=== PATIENT | female | born 1950 | race Caucasian/White ===

== ENCOUNTER 2019-08-13 11:43 | Emergency (ER) | payer MEDICARE, MEDICAID ==
[~2019-08-13] VITALS: Ht 160 cm; Wt 125.0 kg
[~2019-08-13 11:43] MED LIST: ACET325T99 PO; ALBU8.5H8 IH; ASPI-611 PO; ATOR20TA66 PO; BIOT1CAP3 PO; CARV3.123 PO; CYAN-51 PO; FLUT1AER IH; FURO40TA4 PO; GABA-532 PO; GLIM1TAB3 PO; INSU100V36 SQ; LANTUS SQ; LOSA25TA41 PO; MULT-1141 PO; SITA100T11 PO; TRAM50TA2 PO
[2019-08-13] MEDS ORDERED: ondansetron 4mg rapidly disintigrating tab PO ONE (11:55)
[2019-08-13] MEDS ORDERED: HYDROcodone/acetaminophen 5mg/325mg tablet PO ONE (11:55)
[2019-08-13] MEDS ORDERED: ONDA4TAB6 PO (12:41)
--- NOTE | 2019-08-13 12:43 | NUR ---
CALL TO [facility] FOR TRANSPORT. PATIENT MADE AWARE.
[2019-08-13] MEDS ORDERED: CEPH250T PO (13:04)
[2019-08-13 13:48] VITALS: BP 149/62
== END 2019-08-13 13:50 | disposition home or self-care (01) ==
LOC: ER 11:43
DX: L03.115 Cellulitis of right lower limb (principal); E11.65 Type 2 diabetes mellitus with hyperglycemia; I50.9 Heart failure, unspecified; E66.01 Morbid (severe) obesity due to excess calories; Z56.0 Unemployment, unspecified; Z98.890 Other specified postprocedural states; Z88.8 Allergy status to other drugs, medicaments and biological substances; Z79.82 Long term (current) use of aspirin; Z79.4 Long term (current) use of insulin; Z79.899 Other long term (current) drug therapy; Z79.2 Long term (current) use of antibiotics
CPT/HCPCS: 73630; 99284

== ENCOUNTER 2020-03-09 12:38 | Outpatient (CLI) | payer MEDICARE, MEDICAID ==
[~2020-03-09 12:38] MED LIST changes: +AMA1T PO; -GLIM1TAB3 PO; +ONDA4TAB6 PO
[2020-03-09 13:36] LABS: ABG BASE EXCESS 4.5 mmol/L (-2.0-3.0); ABG HCO3 28.2 mmol/L (22.0-26.0); ABG OXYGEN SATURATION 94.8 % (95-98); ABG PCO2 (T) 38.5 mmHg (35.0-45.0); ABG PH (T) 7.482 (7.350-7.450); ABG PO2 (T) 73.8 mmHg (83-108); ALLEN'S TEST POSITIVE; FCOHb 0.6 % (0.5-1.5); FLOW 5 L/min; FMetHb 0.3 % (0.3-1.12); FO2Hb 93.9 % (94-100); TOTAL HEMOGLOBIN 12.8 G/dl (12.0-16.0)
== END 2020-03-09 23:59 | disposition home or self-care (01) ==
LOC: RT 12:38
PROVIDERS: ATTEND Internal Medicine Pulmonary Disease
DX: J84.112 Idiopathic pulmonary fibrosis (principal); J96.11 Chronic respiratory failure with hypoxia
CPT/HCPCS: 36600; 82803; 85018

== ENCOUNTER 2020-04-08 08:12 | Inpatient (IN) | payer MEDICARE, MEDICAID ==
[~2020-04-08] VITALS: Ht 160 cm; Wt 128.9 kg
[2020-04-08] MEDS ORDERED: furosemide 10 MG/1 ML 10ml inj IV ONE (08:50)
[2020-04-08 09:07] LABS: BASOPHILS % (AUTO) 0.3 % (0-1); EOSINOPHILS # (AUTO) 0.1 X10'3 (0-0.9); EOSINOPHILS % (AUTO) 0.6 % (0-6); HEMATOCRIT 44.5 % (35.0-45.0); HEMOGLOBIN 14.1 g/dl (12.0-16.0); LYMPHOCYTES # (AUTO) 0.6 X10'3 (1.1-4.8); LYMPHOCYTES % (AUTO) 3.8 % (21-51); MEAN CORPUSCULAR HGB CONC 31.6 g/dL (33.0-36.5); MEAN CORPUSCULAR VOLUME 94.8 FL (78-98); MEAN PLATELET VOLUME 8.7 FL (7.4-10.4); MONOCYTES # (AUTO) 0.7 X10'3 (0-0.9); MONOCYTES % (AUTO) 4.7 % (2-12); NEUTROPHILS # (AUTO) 13.4 X10'3 (1.8-7.7); NEUTROPHILS % (AUTO) 90.6 % (42-75); PLATELET COUNT 220 X10'3 (140-440); RED CELL DISTRIBUTION WIDTH 16.9 % (11.5-14.5); WHITE BLOOD COUNT 14.8 X10'3 (4.5-11.0)
[2020-04-08 09:17] LABS: PARTIAL THROMBOPLASTIN TIME 23 SECONDS (22-32)
[2020-04-08 09:20] LABS: ALANINE AMINOTRANSFERASE 24 U/L (12-78); ALBUMIN 3.7 G/DL (3.4-5.0); ALBUMIN/GLOBULIN RATIO 0.8 (1.1-1.5); ALKALINE PHOSPHATASE 80 IU/L (46-116); ANION GAP 8 (8-16); ASPARTATE AMINO TRANSFERASE 20 U/L (10-37); BILIRUBIN,TOTAL 0.9 MG/DL (0.1-1.0); BLOOD UREA NITROGEN 33 MG/DL (7-18); BUN/CREATININE RATIO 26.2 (6.6-38.0); CALCIUM 9.1 MG/DL (8.5-10.1); CHLORIDE 101 MMOL/L (99-107); CREATININE 1.26 MG/DL (0.40-0.90); GLUCOSE 288 MG/DL (70-104); POTASSIUM 4.2 MMOL/L (3.5-5.1); SODIUM 139 MMOL/L (135-145); TOTAL CARBON DIOXIDE 30.2 MMOL/L (24-32); TOTAL PROTEIN 8.6 G/DL (6.4-8.2); eGFR 42 ML/MIN
[2020-04-08 09:20] LABS: ABG BASE EXCESS -1.4 mmol/L (-2.0-3.0); ABG HCO3 22.9 mmol/L (22.0-26.0); ABG PCO2 (T) 37.3 mmHg (35.0-45.0); ABG PH (T) 7.406 (7.350-7.450); ABG PO2 (T) 96.7 mmHg (83-108); ALLEN'S TEST POSITIVE; FCOHb 1.3 % (0.5-1.5); FLOW 15 L/min; FMetHb 0.1 % (0.3-1.12); FO2Hb 95.6 % (94-100); TOTAL HEMOGLOBIN 14.6 G/dl (12.0-16.0)
[2020-04-08] MEDS ORDERED: normal saline 1000ml 1,000 ML IV ONE (09:35)
--- NOTE | 2020-04-08 09:41 | NUR ---
PATIENT TAKEN OFF NO REBREATHER AND PLACED ON N/C 5L
[2020-04-08] MEDS ORDERED: LIDOcaine 2% 10ml TOPICAL JELLY (Urojet) TP ONE (11:15)
--- NOTE | 2020-04-08 12:13 | NUR ---
Pt gave permission to give Marie Amaro any information that she would like. Marie is the pt's niece and caregiver. Marie is listed at pt's next of kin.
--- NOTE | 2020-04-08 12:16 | NUR ---
Lab called with a negative COVID result for pt.
[2020-04-08] MEDS ORDERED: iohexol 350MG/ML 100ml bottle IV ONE (12:17)
[2020-04-08] MEDS ORDERED: LORazepam 2 mg/ml vial IV ONE (12:20)
[2020-04-08] MEDS ORDERED: bisacodyl 10mg suppository rectal RC PRN (14:00)
[2020-04-08] MEDS ORDERED: ondansetron/PF 4mg/2ml inj IV PRN (14:00)
[2020-04-08] MEDS ORDERED: magnesium 4gm in 100ml NS 100 ML IV PRN (14:00)
[2020-04-08] MEDS ORDERED: magnesium 2GM in 50ml NS 50 ML IV PRN (14:00)
[2020-04-08] MEDS ORDERED: magnesium Cl slow-release 64mg tablet PO PRN (14:00)
[2020-04-08] MEDS ORDERED: HYDROcodone/acetaminophen 5mg/325mg tablet PO PRN (14:00)
[2020-04-08] MEDS ORDERED: HYDROcodone/acetaminophen 10/325mg tab PO PRN (14:00)
[2020-04-08] MEDS ORDERED: morphine 2 MG/ML inj. syringe IV PRN ×2 (14:00)
[2020-04-08] MEDS ORDERED: potassium Cl 20 mEq SR tablet PO PRN ×2 (14:00)
[2020-04-08] MEDS ORDERED: acetaminophen 325mg tablet PO PRN (14:00)
[2020-04-08] MEDS ORDERED: potassium CL 10mEq/100ml bag 100 ML IV PRN ×2 (14:00)
[2020-04-08] MEDS ORDERED: mag hydrox/Alum hydrox/simeth 30ml oral suspension PO PRN (14:00)
[2020-04-08] MEDS ORDERED: magnesium hydroxide 30ml (MOM) UD suspension PO PRN (14:00)
[2020-04-08] MEDS: CefTRIAXone/D5W-Rocephin 1gm 50 ML IV SCH (15:00)
[2020-04-08] MEDS ORDERED: BUDE10.2 IH (15:16)
[2020-04-08] MEDS ORDERED: GABA300C PO (15:16)
[2020-04-08] MEDS ORDERED: FURO-149 PO (15:16)
[2020-04-08] MEDS ORDERED: TRAM50TA2 PO (15:16)
[2020-04-08] MEDS ORDERED: NYSPWD TP (15:16)
[2020-04-08] MEDS ORDERED: LOSA25TA41 PO (15:16)
[2020-04-08] MEDS ORDERED: SITA50TA7 PO (15:16)
[2020-04-08] MEDS ORDERED: TRAZ-251 PO (15:16)
[2020-04-08] MEDS ORDERED: CARV3.122 PO (15:16)
[2020-04-08] MEDS ORDERED: ALBU18HF2 IH (15:16)
[2020-04-08] MEDS ORDERED: ANAS1TAB10 PO (15:16)
[2020-04-08] MEDS ORDERED: POTA10CA44 PO (15:16)
[2020-04-08] MEDS ORDERED: GLIP5TAB13 PO (15:16)
[2020-04-08] MEDS ORDERED: ATOR20TA PO (15:16)
[2020-04-08] MEDS ORDERED: INSU100V9 SQ ×2 (15:16)
[2020-04-08] MEDS ORDERED: dextrose ORAL solution 15 GM/59 ML bottle PO PRN ×2 (15:35)
[2020-04-08] MEDS ORDERED: furosemide 40mg/4ml inj IV ONE (15:35)
[2020-04-08] MEDS ORDERED: dextrose 50%-water 50ml dispensing syringe IV PRN ×2 (15:35)
[2020-04-08] MEDS ORDERED: MESSAGE TO PHARMACY PO ONE (15:35)
[2020-04-08] MEDS ORDERED: glucagon, human recombinant 1mg kit SUBCUT PRN (15:35)
[2020-04-08 15:40] LABS: HEMOGLOBIN A1C 8.8 % (4.5-6.2)
[2020-04-08] MEDS ORDERED: methylPREDNISolone sod succ 125mg/2ml vial IV ONE (15:50)
[2020-04-08] MEDS ORDERED: ipratropium/albuterol 3ml nebule NEB PRN (15:50)
[2020-04-08] MEDS ORDERED: traMADol 50MG tablet PO PRN (15:55)
[2020-04-08] MEDS ORDERED: traZODone 50mg tablet PO PRN (15:55)
--- NOTE | 2020-04-08 16:06 | NUR ---
Ella RT for evaluation of pt as she is only satting 86% with a good pleth on 6L.
--- NOTE | 2020-04-08 16:11 | NUR ---
Placed pt on non-rebreather at 15L, now 95%. RT at bedside.
--- NOTE | 2020-04-08 16:20 | NUR ---
Pt placed on BIPAP by RT.
--- NOTE | 2020-04-08 16:41 | NUR ---
Pt's son is Gregor Joyce, his number is [phone]. He is able to have any info per pt.
[2020-04-08] MEDS: potassium chloride 10mEq ER tablet PO SCH (17:30)
[2020-04-08 17:45] LABS: ABG BASE EXCESS 3.5 mmol/L (-2.0-3.0); ABG HCO3 27.5 mmol/L (22.0-26.0); ABG OXYGEN SATURATION 99.1 % (95-98); ABG PCO2 (T) 39.5 mmHg (35.0-45.0); ABG PO2 (T) 193.5 mmHg (83-108); ALLEN'S TEST POSITIVE; FMetHb 0.1 % (0.3-1.12); RESPIRATORY RATE 14 b/min; TIDAL VOLUME 29 mL; TOTAL HEMOGLOBIN 14.1 G/dl (12.0-16.0)
[2020-04-08 19:05] VITALS: BP 124/68
--- NOTE | 2020-04-08 19:05 | NUR ---
pt arrived to PCU unit from the ER, pt transferred to the hospital bed via slide board, pt is not in any respiratory distress at this time, pt is on bipap at 70%, all needs addressed, will continue to monitor pt
[2020-04-08] MEDS: K and/or MAG REPLACEMENT MC SCH (20:00)
[2020-04-08] MEDS: furosemide 40mg/4ml inj IV SCH (20:24)
[2020-04-08] MEDS: ipratropium/albuterol 3ml nebule NEB SCH ×2 (20:30→23:42)
[2020-04-08] MEDS: methylPREDNISolone sod succ 125mg/2ml vial IV SCH (20:30)
[2020-04-08] MEDS: gabapentin 300mg capsule PO SCH (20:31)
[2020-04-08] MEDS: heparin, porcine 5000 units/ml vial SQ SCH (20:31)
[2020-04-08] MEDS: carVEDilol 3.125mg tablet PO SCH (20:31)
[2020-04-08] MEDS: budesonide 0.5mg/2ml UD nebule IH SCH (20:35)
[2020-04-08] MEDS ORDERED: temazepam 15mg capsule PO PRN (21:00)
--- NOTE | 2020-04-08 22:00 | NUR ---
notified provider of 12 trop being 0.05, no new orders, will continue to monitor pt
[2020-04-08] MEDS: insulin Lispro (HumaLOG) vial - multi-dose SQ SCH (22:11)
[2020-04-08] MEDS: insulin glargine (Lantus) pen - multi-dose SQ SCH (22:14)
[2020-04-08 23:00] VITALS: BP 112/63
[2020-04-09] MEDS: methylPREDNISolone sod succ 125mg/2ml vial IV SCH ×4 (02:28→19:39)
[2020-04-09 03:00] VITALS: BP 102/60
[2020-04-09 06:14] LABS: HEMATOCRIT 39.4 % (35.0-45.0); HEMOGLOBIN 12.7 g/dl (12.0-16.0); MEAN CORPUSCULAR HEMOGLOBIN 30.1 PG (27.0-31.0); MEAN CORPUSCULAR HGB CONC 32.1 g/dL (33.0-36.5); MEAN CORPUSCULAR VOLUME 93.7 FL (78-98); MEAN PLATELET VOLUME 8.8 FL (7.4-10.4); PLATELET COUNT 195 X10'3 (140-440); RED BLOOD COUNT 4.21 X10'6 (4.20-5.60); RED CELL DISTRIBUTION WIDTH 17.3 % (11.5-14.5)
[2020-04-09 06:32] LABS: ALBUMIN 2.7 G/DL (3.4-5.0); ANION GAP 7 (8-16); BLOOD UREA NITROGEN 29 MG/DL (7-18); BUN/CREATININE RATIO 21.3 (6.6-38.0); CALCIUM 8.3 MG/DL (8.5-10.1); CHLORIDE 102 MMOL/L (99-107); CHOLESTEROL 112 MG/DL (0-200); CREATININE 1.36 MG/DL (0.40-0.90); GLUCOSE 416 MG/DL (70-104); HDL CHOLESTEROL 55 MG/DL (35-60); LDL CHOLESTEROL 45 MG/DL (50-100); MAGNESIUM 2.1 MG/DL (1.5-2.4); POTASSIUM 4.2 MMOL/L (3.5-5.1); SODIUM 137 MMOL/L (135-145); TOTAL CARBON DIOXIDE 28.1 MMOL/L (24-32); TRIGLYCERIDES 63 MG/DL (20-135); eGFR 39 ML/MIN
--- NOTE | 2020-04-09 06:36 | NUR ---
Patient in room PCU 3017. I have received report from MICHELET Posey and had the opportunity to ask questions and assume patient care.
--- NOTE | 2020-04-09 06:46 | NUR ---
Problems reprioritized. Patient report given, questions answered & plan of care reviewed with Michelle TAFOYA.
[2020-04-09 07:00] VITALS: BP 102/40
[2020-04-09] MEDS: ipratropium/albuterol 3ml nebule NEB SCH ×4 (07:00→19:38)
--- NOTE | 2020-04-09 07:25 | NUR ---
PAGER ID: [phone] MESSAGE: [id number]: Kisha Melo: BRANI: Critical sugar of 405 -Michelle [phone]
[2020-04-09] MEDS: potassium chloride 10mEq ER tablet PO SCH ×2 (07:55→19:40)
[2020-04-09] MEDS: carVEDilol 3.125mg tablet PO SCH ×2 (07:56→19:42)
[2020-04-09] MEDS: atorvastatin 20mg tablet PO SCH (07:56)
[2020-04-09] MEDS: gabapentin 300mg capsule PO SCH ×2 (07:56→19:40)
[2020-04-09] MEDS: linagliptin 5mg tablet PO SCH (07:56)
[2020-04-09] MEDS: losartan 25mg tablet PO SCH (07:57)
[2020-04-09] MEDS: furosemide 40mg/4ml inj IV SCH ×2 (07:57→19:42)
[2020-04-09] MEDS: heparin, porcine 5000 units/ml vial SQ SCH ×2 (07:57→19:40)
[2020-04-09] MEDS: budesonide 0.5mg/2ml UD nebule IH SCH ×2 (08:00→19:39)
[2020-04-09] MEDS: acetaminophen 325mg tablet PO PRN (08:02)
[2020-04-09] MEDS: CefTRIAXone/D5W-Rocephin 1gm 50 ML IV SCH (08:02)
[2020-04-09] MEDS: anastrozole 1 MG tablet PO SCH (08:03)
[2020-04-09] MEDS: K and/or MAG REPLACEMENT MC SCH ×2 (08:25→20:00)
[2020-04-09] MEDS: insulin Lispro (HumaLOG) vial - multi-dose SQ SCH ×4 (08:36→22:52)
--- NOTE | 2020-04-09 12:46 | NUR ---
New orders from Chari for 1mg of ativan once stat. Addendum: 04/09/20 at 1247 by Michelle Veras RN VOID
--- NOTE | 2020-04-09 13:31 | NUR ---
DM consult: Pt with A1c 8.8% seen at bedside provided with written and verbal DM education. Pt states she takes her DM medications per rx and checks her BG levels three times a day with resulting numbers 140-150 mg/dL. Pt declines questions about diabetes management at this time stating she has had it for a long time. Pt reports a fluctuating appetite since admit, documented with 50% PO intake at dinner last night on heart healthy CHO controlled diet with 2L fluid restriction. Pt reports roughly 60% PO intake at breakfast this morning, lunch tray visible during RD visit noted to be about 75% consumed. Pt states some difficulty eating d/t being on BiPAP and agrees to ONS if needed, pending further trends in PO intake. Pt denies food allergies however dislikes raw onions. LBM 04/08 however pt reports LBM was 04/07. Pt agrees to prunes with next meal tray. All food preferences were d/w dietary. Pt provided with RD contact information. Will continue to follow. Addendum: 04/09/20 at [address] Amended: Links added.
[2020-04-09 18:00] VITALS: BP 99/52
--- NOTE | 2020-04-09 18:22 | NUR ---
Problems reprioritized. Patient report given, questions answered & plan of care reviewed with MICHELET Posey.
--- NOTE | 2020-04-09 18:54 | NUR ---
Patient in room PCU 3017. I have received report from Michelle TAFOYA and had the opportunity to ask questions and assume patient care.
[2020-04-09 20:00] VITALS: BP 109/53
[2020-04-09] MEDS: insulin glargine (Lantus) pen - multi-dose SQ SCH (21:55)
[2020-04-09 22:00] VITALS: BP 109/48
[2020-04-10] VITALS (12 sets, daily range): BP systolic 105–128; BP diastolic 35–77
[2020-04-10] MEDS: ipratropium/albuterol 3ml nebule NEB SCH ×6 (00:05→23:34)
[2020-04-10] MEDS: methylPREDNISolone sod succ 125mg/2ml vial IV SCH ×2 (02:16→09:14)
[2020-04-10] MEDS: insulin Lispro (HumaLOG) vial - multi-dose SQ SCH ×4 (02:23→20:06)
--- NOTE | 2020-04-10 02:23 | NUR ---
due to pt history of high blood sugar, will give additional treatment of insulin, discussed and approved by charge nurse
[2020-04-10 06:11] LABS: HEMATOCRIT 39.8 % (35.0-45.0); HEMOGLOBIN 12.7 g/dl (12.0-16.0); MEAN CORPUSCULAR HEMOGLOBIN 30.1 PG (27.0-31.0); MEAN PLATELET VOLUME 8.8 FL (7.4-10.4); PLATELET COUNT 219 X10'3 (140-440); RED BLOOD COUNT 4.23 X10'6 (4.20-5.60); RED CELL DISTRIBUTION WIDTH 17.1 % (11.5-14.5); WHITE BLOOD COUNT 16.2 X10'3 (4.5-11.0)
[2020-04-10 06:15] LABS: ALBUMIN 2.8 G/DL (3.4-5.0); ANION GAP 8 (8-16); BLOOD UREA NITROGEN 45 MG/DL (7-18); BUN/CREATININE RATIO 30.6 (6.6-38.0); CALCIUM 8.7 MG/DL (8.5-10.1); CHLORIDE 103 MMOL/L (99-107); CREATININE 1.47 MG/DL (0.40-0.90); GLUCOSE 265 MG/DL (70-104); MAGNESIUM 2.4 MG/DL (1.5-2.4); POTASSIUM 3.8 MMOL/L (3.5-5.1); SODIUM 140 MMOL/L (135-145); TOTAL CARBON DIOXIDE 29.1 MMOL/L (24-32); eGFR 35 ML/MIN
[2020-04-10] MEDS: K and/or MAG REPLACEMENT MC SCH ×2 (08:00→20:00)
[2020-04-10] MEDS: anastrozole 1 MG tablet PO SCH (08:00)
[2020-04-10] MEDS: budesonide 0.5mg/2ml UD nebule IH SCH ×2 (08:13→18:58)
[2020-04-10] MEDS: furosemide 40mg/4ml inj IV SCH ×2 (09:13→20:07)
[2020-04-10] MEDS: CefTRIAXone/D5W-Rocephin 1gm 50 ML IV SCH (09:13)
[2020-04-10] MEDS: losartan 25mg tablet PO SCH (09:14)
[2020-04-10] MEDS: heparin, porcine 5000 units/ml vial SQ SCH ×2 (09:14→20:10)
[2020-04-10] MEDS: gabapentin 300mg capsule PO SCH ×2 (09:14→20:10)
[2020-04-10] MEDS: atorvastatin 20mg tablet PO SCH (09:15)
[2020-04-10] MEDS: carVEDilol 3.125mg tablet PO SCH ×2 (09:15→20:10)
[2020-04-10] MEDS: potassium chloride 10mEq ER tablet PO SCH ×2 (09:15→17:46)
[2020-04-10] MEDS: linagliptin 5mg tablet PO SCH (09:15)
[2020-04-10] MEDS: methylPREDNISolone sod succ/PF 40mg inj. IV SCH ×2 (13:29→20:07)
[2020-04-10] MEDS: acetaminophen 325mg tablet PO PRN (13:30)
--- NOTE | 2020-04-10 16:02 | NUR ---
Paged [facility] PAGER ID: [phone] MESSAGE: [id number] - Yuko Schuster: Vasc US results of no upper left ext DVT. Would you like for pt to be discharged? -Michelle [phone]
--- NOTE | 2020-04-10 18:23 | NUR ---
Problems reprioritized. Patient report given, questions answered & plan of care reviewed with MICHELET Posey.
--- NOTE | 2020-04-10 18:30 | NUR ---
Patient in room PCU 3017. I have received report from Michelle TAFOYA and had the opportunity to ask questions and assume patient care.
--- NOTE | 2020-04-10 19:03 | NUR ---
Patient is resting comfortably on 3.5L NC. BiPAP is not indicated at this time. We will monitor patient and see if BiPAP is indicated as the night goes on.
[2020-04-10] MEDS: insulin glargine (Lantus) pen - multi-dose SQ SCH (21:45)
[2020-04-11] VITALS (11 sets, daily range): BP systolic 101–132; BP diastolic 51–108
[2020-04-11 05:51] LABS: HEMATOCRIT 39.6 % (35.0-45.0); HEMOGLOBIN 12.7 g/dl (12.0-16.0); MEAN CORPUSCULAR HEMOGLOBIN 29.9 PG (27.0-31.0); MEAN CORPUSCULAR HGB CONC 32.1 g/dL (33.0-36.5); MEAN CORPUSCULAR VOLUME 93.3 FL (78-98); MEAN PLATELET VOLUME 8.9 FL (7.4-10.4); PLATELET COUNT 215 X10'3 (140-440); RED BLOOD COUNT 4.25 X10'6 (4.20-5.60); WHITE BLOOD COUNT 12.5 X10'3 (4.5-11.0)
[2020-04-11 06:12] LABS: ALBUMIN 2.7 G/DL (3.4-5.0); ANION GAP 6 (8-16); BLOOD UREA NITROGEN 47 MG/DL (7-18); BUN/CREATININE RATIO 36.2 (6.6-38.0); CALCIUM 8.2 MG/DL (8.5-10.1); CHLORIDE 103 MMOL/L (99-107); GLUCOSE 255 MG/DL (70-104); MAGNESIUM 2.5 MG/DL (1.5-2.4); POTASSIUM 4.3 MMOL/L (3.5-5.1); SODIUM 141 MMOL/L (135-145); TOTAL CARBON DIOXIDE 31.6 MMOL/L (24-32); eGFR 41 ML/MIN
--- NOTE | 2020-04-11 06:20 | NUR ---
Patient in room PCU 3017. I have received report from MICHELET Posey and had the opportunity to ask questions and assume patient care.
--- NOTE | 2020-04-11 06:45 | NUR ---
Problems reprioritized. Patient report given, questions answered & plan of care reviewed with Michelle TAFOYA.
[2020-04-11] MEDS: CefTRIAXone/D5W-Rocephin 1gm 50 ML IV SCH (07:36)
[2020-04-11] MEDS: gabapentin 300mg capsule PO SCH ×2 (07:37→19:48)
[2020-04-11] MEDS: potassium chloride 10mEq ER tablet PO SCH ×2 (07:37→16:50)
[2020-04-11] MEDS: methylPREDNISolone sod succ/PF 40mg inj. IV SCH ×2 (07:37→19:48)
[2020-04-11] MEDS: atorvastatin 20mg tablet PO SCH (07:37)
[2020-04-11] MEDS: heparin, porcine 5000 units/ml vial SQ SCH ×2 (07:37→19:49)
[2020-04-11] MEDS: carVEDilol 3.125mg tablet PO SCH ×2 (07:37→19:48)
[2020-04-11] MEDS: linagliptin 5mg tablet PO SCH (07:37)
[2020-04-11] MEDS: furosemide 40mg/4ml inj IV SCH ×2 (07:37→19:48)
[2020-04-11] MEDS: losartan 25mg tablet PO SCH (07:38)
[2020-04-11] MEDS: K and/or MAG REPLACEMENT MC SCH ×2 (07:38→20:00)
[2020-04-11] MEDS: anastrozole 1 MG tablet PO SCH (07:38)
[2020-04-11] MEDS: budesonide 0.5mg/2ml UD nebule IH SCH ×2 (07:52→19:24)
[2020-04-11] MEDS: ipratropium/albuterol 3ml nebule NEB SCH ×5 (07:52→23:21)
[2020-04-11] MEDS: azithromycin 250mg tablet PO SCH (10:11)
[2020-04-11] MEDS: acetaminophen 325mg tablet PO PRN (10:11)
[2020-04-11] MEDS: insulin Lispro (HumaLOG) vial - multi-dose SQ SCH ×4 (10:15→21:19)
--- NOTE | 2020-04-11 17:17 | NUR ---
New orders from Gonzalez for a stat CBC and to increase NS to 150mL/hr Addendum: 04/11/20 at 1717 by Michelle Veras RN VOID
--- NOTE | 2020-04-11 18:08 | NUR ---
Problems reprioritized. Patient report given, questions answered & plan of care reviewed with MICHELET Steinberg.
[2020-04-11] MEDS: insulin glargine (Lantus) pen - multi-dose SQ SCH (21:20)
[2020-04-12 02:00] VITALS: BP 124/65
[2020-04-12 06:18] LABS: HEMATOCRIT 40.7 % (35.0-45.0); MEAN CORPUSCULAR HEMOGLOBIN 29.9 PG (27.0-31.0); MEAN CORPUSCULAR VOLUME 93.3 FL (78-98); PLATELET COUNT 211 X10'3 (140-440); RED BLOOD COUNT 4.36 X10'6 (4.20-5.60); WHITE BLOOD COUNT 9.2 X10'3 (4.5-11.0)
--- NOTE | 2020-04-12 06:34 | NUR ---
Problems reprioritized. Patient report given, questions answered & plan of care reviewed with MICHELET Meza.
[2020-04-12 06:41] LABS: ALBUMIN 2.7 G/DL (3.4-5.0); ANION GAP 6 (8-16); BLOOD UREA NITROGEN 52 MG/DL (7-18); BUN/CREATININE RATIO 44.4 (6.6-38.0); CHLORIDE 105 MMOL/L (99-107); CREATININE 1.17 MG/DL (0.40-0.90); GLUCOSE 247 MG/DL (70-104); MAGNESIUM 2.7 MG/DL (1.5-2.4); POTASSIUM 4.4 MMOL/L (3.5-5.1); SODIUM 143 MMOL/L (135-145); TOTAL CARBON DIOXIDE 32.2 MMOL/L (24-32); eGFR 46 ML/MIN
[2020-04-12] MEDS: ipratropium/albuterol 3ml nebule NEB SCH ×2 (07:09→11:00)
[2020-04-12] MEDS: budesonide 0.5mg/2ml UD nebule IH SCH (07:09)
[2020-04-12] MEDS: potassium chloride 10mEq ER tablet PO SCH (07:30)
[2020-04-12] MEDS: K and/or MAG REPLACEMENT MC SCH (08:00)
[2020-04-12] MEDS: losartan 25mg tablet PO SCH (09:00)
[2020-04-12] MEDS: furosemide 40mg/4ml inj IV SCH (09:00)
[2020-04-12 09:30] VITALS: BP 98/67
[2020-04-12] MEDS: azithromycin 250mg tablet PO SCH (09:38)
[2020-04-12] MEDS: atorvastatin 20mg tablet PO SCH (09:38)
[2020-04-12] MEDS: gabapentin 300mg capsule PO SCH (09:38)
[2020-04-12] MEDS: anastrozole 1 MG tablet PO SCH (09:39)
[2020-04-12] MEDS: heparin, porcine 5000 units/ml vial SQ SCH (09:40)
[2020-04-12] MEDS: methylPREDNISolone sod succ/PF 40mg inj. IV SCH (09:40)
[2020-04-12] MEDS: insulin Lispro (HumaLOG) vial - multi-dose SQ SCH (09:53)
--- NOTE | 2020-04-12 09:56 | NUR ---
asked by primary RN Aimee to admin am meds. pts bp 98/67 BP meds held. k 4.4 k held. MICHELET Clark aware.
[2020-04-12] MEDS: CefTRIAXone/D5W-Rocephin 1gm 50 ML IV SCH (10:02)
[2020-04-12 11:00] VITALS: BP 125/46
[2020-04-12] MEDS: linagliptin 5mg tablet PO SCH (11:08)
== END 2020-04-12 12:22 | DRG 291 ==
LOC: ER 08:13 → ED HOLD 13:58 → PCU 3S 19:00
PROVIDERS: ADMIT Family Medicine; ATTEND Internal Medicine
PROC: 5A09357 Assistance with Respiratory Ventilation, Less than 24 Consecutive Hours, Continuous Positive Airway Pressure (ICD-10-PCS; 2020-04-08)
PROC: 5A09357 Assistance with Respiratory Ventilation, Less than 24 Consecutive Hours, Continuous Positive Airway Pressure (ICD-10-PCS; 2020-04-09)
PROC: 5A09357 Assistance with Respiratory Ventilation, Less than 24 Consecutive Hours, Continuous Positive Airway Pressure (ICD-10-PCS; principal; 2020-04-10)
PROC: 5A09357 Assistance with Respiratory Ventilation, Less than 24 Consecutive Hours, Continuous Positive Airway Pressure (ICD-10-PCS; 2020-04-11)
PROC: 5A09357 Assistance with Respiratory Ventilation, Less than 24 Consecutive Hours, Continuous Positive Airway Pressure (ICD-10-PCS; 2020-04-12)
DX: I11.0 Hypertensive heart disease with heart failure (principal); J96.01 Acute respiratory failure with hypoxia; J44.1 Chronic obstructive pulmonary disease with (acute) exacerbation; Z68.43 Body mass index [BMI] 50.0-59.9, adult; N17.9 Acute kidney failure, unspecified; I50.33 Acute on chronic diastolic (congestive) heart failure; D72.829 Elevated white blood cell count, unspecified; E78.5 Hyperlipidemia, unspecified; Z20.828 Contact with and (suspected) exposure to other viral communicable diseases; Z88.8 Allergy status to other drugs, medicaments and biological substances; I25.10 Atherosclerotic heart disease of native coronary artery without angina pectoris; Z85.3 Personal history of malignant neoplasm of breast; Z99.81 Dependence on supplemental oxygen; E66.01 Morbid (severe) obesity due to excess calories; G89.29 Other chronic pain; E11.42 Type 2 diabetes mellitus with diabetic polyneuropathy
CPT/HCPCS: 36415; 36600; 71045; 71275; 80048; 80053; 80061; 82803; 82948; 83036; 83605; 83735; 83880; 84145; 84484; 85018; 85025; 85027; 85610; 85730; 87040; 87081; 87635; 93005; 93308; 94640; 94660; 94760; 96374; 97110; 97116; 97161; 97530; 99285; G0378; J0696; J1644; J1815; J1940; J2060; J2920; J2930; J7030; J7626; Q9967

== ENCOUNTER 2021-04-23 15:25 | Emergency (ER) | payer MEDICARE, MEDICAID ==
[~2021-04-23] VITALS: Ht 160 cm; Wt 135.7 kg
[~2021-04-23 15:25] MED LIST changes: -ACET325T99 PO; +ALBU18HF2 IH; -ALBU8.5H8 IH; -AMA1T PO; +ANAS1TAB10 PO; -ASPI-611 PO; +ATOR20TA PO; -ATOR20TA66 PO; -BIOT1CAP3 PO; +BUDE10.2 IH; +CARV3.122 PO; -CARV3.123 PO; +CEFU500T66 PO; -CYAN-51 PO; -FLUT1AER IH; +FURO-149 PO; -FURO40TA4 PO; -GABA-532 PO; +GABA300C PO; +GLIP5TAB13 PO; -INSU100V36 SQ; +INSU100V9 SQ; +LACT1CAP26 PO; -LANTUS SQ; -MULT-1141 PO; +NYSPWD TP; -ONDA4TAB6 PO; +POTA10CA44 PO; +PRED20TA PO; -SITA100T11 PO; +SITA50TA7 PO; +TRAZ-251 PO
[2021-04-23] MEDS ORDERED: furosemide 40mg/4ml inj IV ONE (15:35)
[2021-04-23] MEDS ORDERED: ipratropium/albuterol 3ml nebule NEB ONE (15:35)
[2021-04-23] MEDS ORDERED: nitroGLYCERIN 1gm ointment UD TP ONE (15:35)
[2021-04-23 16:39] LABS: BASOPHILS # (AUTO) 0.1 X10'3 (0-0.2); BASOPHILS % (AUTO) 1.1 % (0-1); EOSINOPHILS # (AUTO) 0.3 X10'3 (0-0.9); EOSINOPHILS % (AUTO) 3.2 % (0-6); HEMOGLOBIN 14.4 g/dl (12.0-16.0); LYMPHOCYTES # (AUTO) 1.3 X10'3 (1.1-4.8); LYMPHOCYTES % (AUTO) 12.8 % (21-51); MEAN CORPUSCULAR VOLUME 96.8 FL (78-98); MONOCYTES # (AUTO) 0.7 X10'3 (0-0.9); MONOCYTES % (AUTO) 7.2 % (2-12); NEUTROPHILS # (AUTO) 7.7 X10'3 (1.8-7.7); NEUTROPHILS % (AUTO) 75.7 % (42-75); PLATELET COUNT 200 X10'3 (140-440); RED BLOOD COUNT 4.65 X10'6 (4.20-5.60); RED CELL DISTRIBUTION WIDTH 19.1 % (11.5-14.5); WHITE BLOOD COUNT 10.2 X10'3 (4.5-11.0)
[2021-04-23 16:54] LABS: ALANINE AMINOTRANSFERASE 24 U/L (12-78); ALBUMIN 3.1 G/DL (3.4-5.0); ALBUMIN/GLOBULIN RATIO 0.7 (1.1-1.5); ALKALINE PHOSPHATASE 96 IU/L (46-116); ANION GAP 2 (8-16); ASPARTATE AMINO TRANSFERASE 21 U/L (10-37); BLOOD UREA NITROGEN 25 MG/DL (7-18); BUN/CREATININE RATIO 19.1 (6.6-38.0); CALCIUM 8.7 MG/DL (8.5-10.1); CHLORIDE 101 MMOL/L (99-107); CREATININE 1.31 MG/DL (0.40-0.90); GLUCOSE 151 MG/DL (70-104); POTASSIUM 4.1 MMOL/L (3.5-5.1); SODIUM 136 MMOL/L (135-145); TOTAL CARBON DIOXIDE 33.3 MMOL/L (24-32); TOTAL PROTEIN 7.6 G/DL (6.4-8.2); eGFR 40 ML/MIN
[2021-04-23 17:30] VITALS: BP 149/71
[2021-04-23] MEDS ORDERED: methylPREDNISolone sod succ 125mg/2ml vial IV ONE (17:55)
[2021-04-23] MEDS ORDERED: albuterol 2.5 MG/3 ML nebule NEB ONE (17:55)
--- NOTE | 2021-04-23 18:02 | NUR ---
RT AT BEDSIDE TO PERFORM BREATHING TX PER MD ORDER (SEE EMAR).
[2021-04-23] MEDS ORDERED: PRED20TA PO (19:04)
[2021-04-23] MEDS ORDERED: HYDROcodone/acetaminophen 5mg/325mg tablet PO ONE (19:05)
[2021-04-23] MEDS ORDERED: acetaminophen 325mg tablet PO ONE (19:05)
--- NOTE | 2021-04-23 19:18 | NUR ---
PT GOING HOME [facility]IA [facility], ETA 10-15 MINUTES
--- NOTE | 2021-04-23 19:40 | NUR ---
pt able to transfer self with min assist from gurney to wheelchair, on 4 liters nasal cannula
== END 2021-04-23 19:52 | disposition home or self-care (01) ==
LOC: ER 15:25
DX: J44.1 Chronic obstructive pulmonary disease with (acute) exacerbation (principal); E78.00 Pure hypercholesterolemia, unspecified; I11.9 Hypertensive heart disease without heart failure; E11.9 Type 2 diabetes mellitus without complications; Z88.1 Allergy status to other antibiotic agents; Z79.899 Other long term (current) drug therapy
CPT/HCPCS: 36415; 71045; 80053; 83880; 85025; 93005; 94640; 96374; 96375; 99285; J1940; J2930; 94760